=== PATIENT | female | born 1955 | race Caucasian/White ===

== ENCOUNTER 2018-09-14 23:22 | Emergency (ER) | payer OTHER ==
[~2018-09-14] VITALS: Ht 157.5 cm; Wt 97.9 kg
[2018-09-15] MEDS ORDERED: ondansetron/PF 4mg/2ml inj IV ONE (00:25)
[2018-09-15] MEDS ORDERED: normal saline 1000ml 1,000 ML IV ONE (00:25)
[2018-09-15] MEDS ORDERED: morphine 4 MG/ML inj SYRINge IV ONE (00:25)
[2018-09-15] MEDS ORDERED: morphine 4 MG/ML inj SYRINge IM ONE (01:20)
[2018-09-15] MEDS ORDERED: ondansetron 4mg rapidly disintigrating tab PO ONE (01:20)
--- NOTE | 2018-09-15 01:58 | NUR ---
MULTIPLE ATTEMPTS MADE AT IV ACCESS ON PT. UNABLE TO OBTAIN IV ACCESS WITH 3 SEPERATE RN ATTEMPTS INCLUDING ULTRASOUND IV. KEPT DR RICO INFORMED. PT TO CT AND RX GIVEN IM PER DR JACOME ORDERS.
--- NOTE | 2018-09-15 02:02 | NUR ---
DR RICO AT BEDSIDE WITH PT DISCUSSING OPTIONS REGARDING SEDATION FOR PT.
[2018-09-15] MEDS ORDERED: ketamine 50 mg/ml 10ml vial IM ONE (02:10)
[2018-09-15] MEDS ORDERED: ketorolac trometh inj. 60 MG/2 ML VIAL IM ONE (02:50)
[2018-09-15] MEDS ORDERED: HYDR-3965 PO (03:06)
[2018-09-15] MEDS ORDERED: ONDA8TAB6 PO (03:06)
[2018-09-15] MEDS ORDERED: proCHLORperazine 10 MG/2 ml inj IM ONE (04:40)
[2018-09-15 06:15] VITALS: BP 139/75
== END 2018-09-15 06:42 | disposition home or self-care (01) ==
LOC: ER 23:23
DX: S52.592A Other fractures of lower end of left radius, initial encounter for closed fracture (principal); S52.612A Displaced fracture of left ulna styloid process, initial encounter for closed fracture; Z91.040 Latex allergy status; Z88.0 Allergy status to penicillin; Z88.8 Allergy status to other drugs, medicaments and biological substances; Z79.899 Other long term (current) drug therapy; W06.XXXA Fall from bed, initial encounter; Y93.89 Activity, other specified; Y92.89 Other specified places as the place of occurrence of the external cause; Y99.8 Other external cause status
CPT/HCPCS: 25605; 70450; 72125; 73100; 73110; 96372; 99152; 99153; 99285; J0780; J1885; J2270